=== PATIENT | female | born 1945 | race Caucasian/White ===

== ENCOUNTER → 2017-05-30 | Outpatient (CLI) | payer OTHER, MEDICAID | LOC: BMCIMAGING 12:21 | PROVIDERS: ATTEND Internal Medicine | DX: M51.86 Other intervertebral disc disorders, lumbar region (principal) ==

== ENCOUNTER → 2018-01-16 | Outpatient (CLI) | payer OTHER, MEDICAID | LOC: BMCIMAGING 08:41 | PROVIDERS: ATTEND Internal Medicine | DX: J98.4 Other disorders of lung (principal); M25.561 Pain in right knee; M25.562 Pain in left knee ==